=== PATIENT | male | born 1980 | race American Indian/Alaskan Native ===

== ENCOUNTER 2019-01-10 13:22 | Emergency (ER) | payer SELFPAY ==
[2019-01-10 13:29] VITALS: BP 120/75
--- NOTE | 2019-01-10 13:29 | Event Note ---
ED Screening Note ED Screening Note: frontal PAYNE that began 3 days states he tried to take nyquil +rhinorrhea, +congestion no fever dizziness like the room is spinning no vision changes no numbness or weakness no PMhx no allergies to meds no daily meds This initial assessment/diagnostic orders/clinical plan/treatment(s) is/are subject to change based on patients health status, clinical progression and re- assessment by fellow clinical providers in the ED. Further treatment and workup at subsequent clinical providers discretion. Patient/guardian urged not to elope from the ED as their condition may be serious if not clinically assessed and managed. Initial orders include:
--- NOTE | 2019-01-10 14:02 | Emergency Department Report ---
Chief Complaint: Headache Stated Complaint: HEADACHES/DIZZY Time Seen by Provider: 01/10/19 13:28 - HPI History of Present Illness: Mr. Hess is a 38-year-old male who presents with right-sided frontal headache, subjective, fever and nasal congestion dizziness for the past 3 days. Headache has improved with NyQuil. He requires a work note to return to his place of employment. Clinical impression: Sinus headache, URI. Medical screening exam performed and completed. Headache has subsided. He is ambulatory without difficulty. - Exam Vital Signs: Vital Signs 01/10/19 13:24 Temperature 97.9 F Pulse Rate 63 Respiratory 18 Rate Blood Pressure 120/75 O2 Sat by Pulse 100 Oximetry MSE screening note: Focused history and physical exam performed. Due to findings the following was ordered: ED Disposition for MSE Clinical Impression: Sinus headache, Upper respiratory infection Disposition: MED SCREENING EXAM-LEFT Is pt being admited?: No Does the pt Need Aspirin: No Condition: Stable Forms: Work/School Release Form(ED)
== END 2019-01-10 14:46 | disposition left against medical advice (07) ==
LOC: ED 13:22
DX: J06.9 Acute upper respiratory infection, unspecified (principal)